=== PATIENT | male | born 1980 | race African-American/Black ===

== ENCOUNTER 2024-07-28 07:45 | Emergency (ER) | payer OTHER ==
[~2024-07-28] VITALS: Ht 185.4 cm; Wt 110.8 kg
[2024-07-28 07:48] VITALS: TEMP 98.1
[2024-07-28 08:33] LABS: BASO % 0.3 % (0.0-1.0); EOS # 0.2 10^3/uL (0.0-0.5); EOS % 2.7 % (0.0-3.0); HEMATOCRIT 45.7 % (42.0-52.0); HEMOGLOBIN 15.6 g/dl (13.5-17.5); LYMPH # 1.4 10^3/uL (1.5-5.0); LYMPH % 24.6 % (24.0-44.0); MEAN CORPUSCULAR HEMOGLOBIN 29.7 pg (27.0-33.0); MEAN CORPUSCULAR HGB CONC 34.1 g/dl (32.0-36.5); MONO # 0.5 10^3/uL (0.0-0.8); MONO % 8.9 % (2.0-8.0); NEUTROPHILS # 3.7 10^3/uL (1.5-8.5); NEUTROPHILS % 63.2 % (36.0-66.0); PLATELET COUNT, AUTOMATED 247 10^3/uL (150-450); RED BLOOD COUNT 5.25 10^6/uL (4.30-6.10); WHITE BLOOD COUNT 5.8 10^3/uL (4.0-10.0)
[2024-07-28 08:50] LABS: CK-MB VALUE MASS 1.5 NG/ML (<3.6)
[2024-07-28 08:52] LABS: ALBUMIN 4.1 G/DL (3.2-5.2); BILIRUBIN,DIRECT 0.3 MG/DL (<0.4); BILIRUBIN,TOTAL 1.2 MG/DL (0.3-1.2); CALCIUM LEVEL 9.6 MG/DL (8.5-10.1); CREATININE FOR GFR 1.52 MG/DL (0.70-1.30); GLOMERULAR FILTRATION RATE 57.6 (>60); MB/CK RELATIVE INDEX 0.38 (< OR =4); POTASSIUM SERUM 3.5 MMOL/L (3.5-5.1); TOTAL PROTEIN 7.9 G/DL (5.7-8.2)
[2024-07-28 08:53] LABS: THYROID STIMULATING HORMONE 1.007 uIU/ML (0.55-4.78)
[2024-07-28 08:54] LABS: FREE T4 1.54 NG/DL (0.89-1.76)
[2024-07-28] MEDS ORDERED: ISOVUE-370 76% 100ML VIAL As Ordered ONE (09:05)
[2024-07-28] MEDS: NS (Normal Saline) 0.9% 1,000 ML IV ONE (09:59)
[2024-07-28 10:05] LABS: CK-MB VALUE MASS 1.3 NG/ML (<3.6)
[2024-07-28 10:07] LABS: CPK CREATINE PHOSPHOKINASE 396 U/L (46-171); MB/CK RELATIVE INDEX 0.32 (< OR =4)
[2024-07-28 11:00] VITALS: BP 160/94; O2SAT 98
== END 2024-07-28 11:18 | disposition home or self-care (01) ==
LOC: M ED 07:45 → EDBD 07:45 → M ED 11:18
DX: R07.9 Chest pain, unspecified (principal); I10 Essential (primary) hypertension; N19 Unspecified kidney failure; F17.200 Nicotine dependence, unspecified, uncomplicated
CPT/HCPCS: 36415; 71045; 71275; 80047; 80048; 80076; 82550; 82553; 83690; 84439; 84443; 84484; 85025; 93005; 93041; 94760; 99285; Q9967